=== PATIENT | female | born 1935 | race Caucasian/White ===

== ENCOUNTER 2018-07-12 09:16 | Day surgery (SDC) | payer MEDICARE, BC ==
[~2018-07-12 09:16] MED LIST: Lactated Ringers 1,000 ML IV SCH
[2018-07-12] MEDS ORDERED: Propofol 200 MG/20 ML SDV IV ONE (09:17)
[2018-07-12] MEDS ORDERED: Lidocaine 1% PF 2 ML SDV INJECT ONE (09:17)
--- NOTE | 2018-07-12 11:13 | PCM.HPR ---
H & P Addendum review - H & P Addendum Review Date of Original H & P: 07/03/18 Date Reviewed: 07/12/18 Time Reviewed: 11:12 Patient was Examined: No Changes
--- NOTE | 2018-07-12 11:45 | PCM.OPNOTE ---
- General Post-Op/Procedure Note Date of Surgery/Procedure: 07/12/18 Operative Procedure(s): Colonoscopy Findings: sig tics Pre Op Diagnosis: Anemai Post-Op Diagnosis: Same Anesthesia Technique: MAC Primary Surgeon: Tyson Moseley Complications: None Condition: Good
--- NOTE | 2018-07-13 11:05 | OR ---
DATE OF OPERATION: 07/12/2018 SURGEON: Tyson Moseley MD PREOPERATIVE DIAGNOSIS: Anemia. POSTOPERATIVE DIAGNOSIS: Sigmoid diverticulosis. PROCEDURE: Colonoscopy. ANESTHESIA: IV sedation. PROCEDURE IN DETAIL: The patient was brought to the procedure room where she was placed on her left side and IV sedation administered. Digital rectal exam was performed, which was normal. The colonoscope was inserted and advanced to the level of the cecum with some difficulty getting through the ascending colon, requiring pressure on the abdomen and changing to the supine position. The prep was fair with thick stool remaining through much of the colon that was mostly irrigated and suctioned. Small polyps could have been missed. Upon withdrawing the scope, no source of anemia was found. No tumors, large polyps, or other abnormalities were noted. She does have a few diverticula in the sigmoid colon. Rectum was normal and retroflexion was normal. Air was removed and the scope withdrawn. The patient tolerated the procedure well and returned to recovery in stable condition. /[id number] JOE/MONICA CC: Risa Meyer PA-C [address] [id number]
== END 2018-07-12 13:15 | disposition home or self-care (01) ==
LOC: FB.SDS 09:16 → MERGE 10:30 → FB.SDS 13:15
PROVIDERS: ATTEND Surgery
DX: K57.31 Diverticulosis of large intestine without perforation or abscess with bleeding (principal); D50.0 Iron deficiency anemia secondary to blood loss (chronic); I11.0 Hypertensive heart disease with heart failure; I50.32 Chronic diastolic (congestive) heart failure; I08.1 Rheumatic disorders of both mitral and tricuspid valves; I47.1 Supraventricular tachycardia; I25.2 Old myocardial infarction; M81.0 Age-related osteoporosis without current pathological fracture; Z88.1 Allergy status to other antibiotic agents; Z88.2 Allergy status to sulfonamides; Z88.5 Allergy status to narcotic agent; Z99.81 Dependence on supplemental oxygen; Z86.718 Personal history of other venous thrombosis and embolism; Z87.891 Personal history of nicotine dependence; Z79.51 Long term (current) use of inhaled steroids; Z79.01 Long term (current) use of anticoagulants; Z79.82 Long term (current) use of aspirin; Z79.899 Other long term (current) drug therapy
CPT/HCPCS: 00811; 45378; J2001; J2704; J7120